=== PATIENT | female | born 1965 | race Two or more races ===

== ENCOUNTER 2024-08-28 21:31 | Emergency (ER) | payer OTHER, SELFPAY ==
[2024-08-28 21:36] VITALS: BP 154/101; PULSE 85; TEMP 37.2; O2SAT 100; BMI 37.8
--- NOTE | 2024-08-28 21:52 | PC.NURSE ---
this patient complains that her cat scratched her right ankle and is very painful, onset 08/24/2024. this cat of her is inside cat and does not have her shot per this patient. these scratches no visible discharge or bleeding.
--- NOTE | 2024-08-28 22:08 | ED_ITS ---
HPI HPI - General Adult General Chief complaint: Extremity Injury, Lower Stated complaint: CAT SCRATCH ON RIGHT LEG Time Seen by Provider: 08/28/24 21:38 Source: patient Mode of arrival: walk-in Limitations: no limitations History of Present Illness HPI narrative: 58-year-old female presents for cat scratches. This was sustained to her left lower leg by her own cat who is 9 years old about a week ago. She was not bitten at any point. She noticed a little bit of redness so she came in here tonight. No drainage or fever. Related Data Home Medications ?Medication ?Instructions ?Recorded ?Confirmed citalopram 20 mg tablet 20 mg PO DAILY 08/28/24 08/28/24 clotrimazole-betamethasone 1 1 applic topical Q12H 08/28/24 08/28/24 %-0.05 % topical cream ergocalciferol (vitamin D2) 1,250 1,250 mcg PO .weekly 08/28/24 08/28/24 mcg (50,000 unit) capsule levothyroxine 125 mcg tablet 125 mcg PO DAILY 08/28/24 08/28/24 lisinopril 10 mg tablet 10 mg PO DAILY 08/28/24 08/28/24 Previous Rx's ?Medication ?Instructions ?Recorded cephalexin 500 mg capsule 500 mg PO QID 10 days #40 caps 08/28/24 ibuprofen 800 mg tablet 800 mg PO Q8H PRN pain #20 tabs 08/28/24 Allergies Allergy/AdvReac Type Severity Reaction Status Date / Time No Known Drug Allergies Allergy Verified 08/28/24 21:42 Opioid HPI Opioid Management Most Recent Opioid Data: No Data to Display Review of Systems ROS Narrative A ten point review of systems is negative except as noted above. PFSH PFSH Social History Little interest or pleasure in doing things: not at all Feeling down, depressed, or hopeless: not at all Exam Narrative Exam Narrative: Nurses note and vital signs reviewed and patient is not hypoxic. General: The patient appears well and in no apparent distress. Patient is resting comfortably on cart. Skin: Warm, dry, no pallor noted. There is no rash noted. Head: Normocephalic, atraumatic Eye: Normal conjunctiva, no drainage Ears, Nose, Mouth, and Throat: oral mucosa is moist. Nares patent. Cardiovascular: Regular Rate and Rhythm Respiratory: Patient is in no distress, no accessory muscle use Back: non-tender, no CVA tenderness bilaterally to percussion. GI: Soft and nontender Musculoskeletal: He has numerous linear abrasions on her left leg. There are 6 just above the ankle and several more just below the left knee. There is no open area or drainage. Some have minimal surrounding erythema. No lymphangitis. No abscess. Neurological: A&O, normal speech Psychiatric: Cooperative Constitutional Vital Signs, click to edit/add: Last Vital Signs Temp 98.9 F 08/28/24 21:36 Pulse 85 08/28/24 21:36 Resp 16 08/28/24 21:36 BP 154/101 H 08/28/24 21:36 Pulse Ox 100 08/28/24 21:36 O2 Del Method Room Air 08/28/24 21:36 Course Vital Signs Vital signs: Vital Signs Temperature 98.9 F 08/28/24 21:36 Pulse Rate 85 08/28/24 21:36 Respiratory Rate 16 08/28/24 21:36 Blood Pressure 154/101 H 08/28/24 21:36 Pulse Oximetry 100 08/28/24 21:36 Oxygen Delivery Method Room Air 08/28/24 21:36 Temperature 98.9 F 08/28/24 21:36 Pulse Rate 85 08/28/24 21:36 Respiratory Rate 08/28/24 21:36 Blood Pressure 154/101 H 08/28/24 21:36 Pulse Oximetry 100 08/28/24 21:36 Oxygen Delivery Method Room Air 08/28/24 21:36 Medical Decision Making MDM Narrative Medical decision making narrative: Tetanus is updated and she was given IM Ancef and prescribed Keflex. Treatment diagnosis and follow-up were discussed with the patient. Differential Diagnosis Differential Diagnosis: Cellulitis, and abrasions Discharge Plan Discharge Chief Complaint: Extremity Injury, Lower Clinical Impression: Cat scratch Patient Disposition: Home, Self-Care Time of Disposition Decision: 22:07 Condition: Good Mode of Transportation: Private Vehicle Prescriptions / Home Meds: New cephalexin 500 mg capsule 500 mg PO QID 10 Days Qty: 40 0RF ibuprofen 800 mg tablet 800 mg PO Q8H PRN (Reason: pain) Qty: 20 0RF No Action citalopram 20 mg tablet 20 mg PO DAILY clotrimazole-betamethasone 1-0.05 % cream 1 applic TOPICAL Q12H ergocalciferol (vitamin D2) 1,250 mcg (50,000 unit) capsule 1,250 mcg PO .weekly levothyroxine 125 mcg tablet 125 mcg PO DAILY lisinopril 10 mg tablet 10 mg PO DAILY Print Language: Indonesian Instructions: Abrasion (ED) Referrals: [facility] [Primary Care Provider] - 1 week
[2024-08-28] MEDS: CEFAZOLIN SODIUM 1,000 MG, WATER FOR INJECTION,STERILE 2.5 ML IM (22:22)
[2024-08-28] MEDS: ADACEL DIPH,PERTUSS(ACELL),TET VAC/PF 0.5 ML ADULT SYRINGE IM (22:23)
--- NOTE | 2024-08-28 22:44 | PC.NURSE ---
i gave this patient verbal and paper discharge orders along with 2 e-scripts and this patient voices yes to understanding these. at time of discharge this patient voices no concerns and shows no signs of distress
== END 2024-08-28 22:46 | disposition home or self-care (01) ==
PROVIDERS: Emergency Provider Emergency Medicine
DX: S80.812A Abrasion, left lower leg, initial encounter (principal); W55.03XA Scratched by cat, initial encounter; Z23 Encounter for immunization
CPT/HCPCS: 90471; 90715; 96372; 99284; J0690